=== PATIENT | male | born 1965 | race Caucasian/White ===

== ENCOUNTER 2024-10-29 08:11 | Outpatient (CLI) | payer BC, SELFPAY | END 2024-10-29 08:12 | disposition home or self-care (01) | PROVIDERS: PCP Family Medicine; Visit Provider Family Medicine | DX: Z00.00 Encounter for general adult medical examination without abnormal findings (principal); E78.5 Hyperlipidemia, unspecified; Z13.1 Encounter for screening for diabetes mellitus; Z12.5 Encounter for screening for malignant neoplasm of prostate | CPT/HCPCS: 80061; 82947; G0103 ==

== ENCOUNTER 2024-11-19 11:20 | Outpatient (CLI) | payer BC, SELFPAY ==
--- NOTE | 2024-11-19 13:17 | P.ANES_ITS ---
Anesthesia Charges Start Date/Time Anesthesia Start Date: 11/19/24 Anesthesia Start Time: 13:22 Stop Date/Time Anesthesia Stop Date: 11/19/24 Anesthesia Stop Time: 13:51 Coding CPT Codes CPT Codes: TASHA LWR INTST NDSC NOS - [id number] ([id number]) P2 - PATIENT W/MILD SYST DISEASE, QK - SUPERVISOR PROPERTIES 2-4 CNCRNT ANES PROC, QX - CONDUIT BENDER SVC W/ MD MED DIRECTION
--- NOTE | 2024-11-19 13:17 | W.ANESCHARGE ---
Anesthesia Charges Start Date/Time Anesthesia Start Date: 11/19/24 Anesthesia Start Time: 13:22 Stop Date/Time Anesthesia Stop Date: 11/19/24 Anesthesia Stop Time: 13:51 Coding CPT Codes CPT Codes: TASHA LWR INTST NDSC NOS - [id number] ([id number]) P2 - PATIENT W/MILD SYST DISEASE, QK - TAPER AND FLOATER 2-4 CNCRNT ANES PROC, QX - GERMINATION WORKER SVC W/ MD MED DIRECTION
--- NOTE | 2024-11-19 14:06 | P.ANES_ITS ---
Anesthesia Charges Start Date/Time Anesthesia Start Date: 11/19/24 Anesthesia Start Time: 13:22 Stop Date/Time Anesthesia Stop Date: 11/19/24 Anesthesia Stop Time: 13:51 Coding CPT Codes CPT Codes: TASHA LWR INTST NDSC NOS - [id number] ([id number]) P2 - PATIENT W/MILD SYST DISEASE, QK - ADULT MINISTRIES DIRECTOR 2-4 CNCRNT ANES PROC, QX - TAXATION ACCOUNTANT SVC W/ MD MED DIRECTION
--- NOTE | 2024-11-19 14:06 | W.ANESCHARGE ---
Anesthesia Charges Start Date/Time Anesthesia Start Date: 11/19/24 Anesthesia Start Time: 13:22 Stop Date/Time Anesthesia Stop Date: 11/19/24 Anesthesia Stop Time: 13:51 Coding CPT Codes CPT Codes: TASHA LWR INTST NDSC NOS - [id number] ([id number]) P2 - PATIENT W/MILD SYST DISEASE, QK - OENOLOGIST 2-4 CNCRNT ANES PROC, QX - EXPENDITURE REQUISITION CLERK SVC W/ MD MED DIRECTION
== END 2024-11-19 11:21 | disposition home or self-care (01) ==
LOC: OP CLINIC 11:23
PROVIDERS: PCP Family Medicine; Visit Provider Surgery
DX: Z12.11 Encounter for screening for malignant neoplasm of colon (principal); D12.4 Benign neoplasm of descending colon; D12.5 Benign neoplasm of sigmoid colon; K57.30 Diverticulosis of large intestine without perforation or abscess without bleeding
CPT/HCPCS: 00811; 00812; 45385; 88305; J2704